=== PATIENT | female | born 1965 | race American Indian/Alaskan Native ===

== ENCOUNTER 2016-09-17 15:04 | Emergency (ER) | payer BC ==
--- NOTE | 2016-09-17 15:38 | Emergency Department Report ---
Chief Complaint: Chest Pain Stated Complaint: PHYSICIAN REFERRAL,HX OF CHEST PAIN Time Seen by Provider: 09/17/16 15:36 - HPI History of Present Illness: PT states she was seen in another ED last week and had chest pain work up and was sent home. PT states she followed up with GI today and was sent back to ED. - ROS Review of Systems: + chest pain + back pain - n/v - dysuria - Exam Physical Exam: pt looks well, non toxic no acute resp distress no cva tenderness justin MSE screening note: Focused history and physical exam performed. Due to findings the following was ordered: ekg, labs, xr ED Disposition for MSE Condition: Stable
[2016-09-17 15:42] VITALS: BP 172/100
[2016-09-17 16:24] LABS: Alanine Aminotransferase 9 units/L (7-56); Albumin 4.2 g/dL (3.9-5); Albumin/Globulin Ratio 1.1 %; Alkaline Phosphatase 88 units/L (35-129); Anion Gap 19 mmol/L; BUN/Creatinine Ratio 6.25; Blood Urea Nitrogen 5 mg/dL (7-17); Calcium 9.5 mg/dL (8.4-10.2); Carbon Dioxide 25 mmol/L (22-30); Chloride 100.6 mmol/L (98-107); Glucose 97 mg/dL (65-100); Lipase 55 units/L (13-60); Potassium 3.7 mmol/L (3.6-5.0); Sodium 141 mmol/L (137-145); Total Protein 7.9 g/dL (6.3-8.2)
[2016-09-17 16:26] LABS: Eosinophils % (Auto) 1.8 % (0.0-4.3); Hematocrit 41.4 % (30.3-42.9); Hemoglobin 13.4 gm/dl (10.1-14.3); Mean Corpuscular HGB Conc 32 % (30-34); Mean Corpuscular Volume 78 fl (79-97); Platelet Count 299 K/mm3 (140-440); Red Blood Count 5.33 M/mm3 (3.65-5.03); Red Cell Distribution Width 16.1 % (13.2-15.2); White Blood Count 8.7 K/mm3 (4.5-11.0)
[2016-09-17 16:28] LABS: INR 1.13 (0.87-1.13); Partial Thromboplastin Time 33.3 Sec. (24.2-36.6)
[2016-09-17 16:32] LABS: Mean Corpuscular Hemoglobin 25 pg (28-32)
--- NOTE | 2016-09-17 16:45 | XRay Report ---
CHEST TWO VIEWS: 09/17/16 15:04:00 CLINICAL: Chest pain. COMPARISON: 09/12/09 FINDINGS: Normal heart and pulmonary vasculature. The lungs are normally expanded and clear.The bones and soft tissues are unremarkable. IMPRESSION: Normal chest.
[2016-09-17 16:48] LABS: Bilirubin,Urine NEG (Negative); Blood,Urine NEG (Negative); Ketones,Urine TR mg/dL (Negative); Leukocyte Esterase,Urine TR (Negative); Mucus,Urine FEW /HPF; Nitrite,Urine NEG (Negative); Protein,Urine <15 mg/dL mg/dL (Negative)
--- NOTE | 2016-09-21 11:13 | ED Elopement Review ---
ED Pt Elopement review - Results review Lab results: Laboratory Tests 09/17/16 09/17/16 09/17/16 15:46 15:46 15:46 WBC 8.7 RBC 5.33 H Hgb 13.4 Hct 41.4 MCV 78 L MCH 25 L MCHC 32 RDW 16.1 H Plt Count 299 Lymph % (Auto) 35.0 Moca % (Auto) 6.5 Eos % (Auto) 1.8 Baso % (Auto) [employer] Lymph # 3.0 Moca # 0.6 Eos # 0.2 Baso # 0.0 Seg Neutrophils % 56.2 Seg Neutrophils # 4.9 PT 14.4 INR 1.13 APTT 33.3 Sodium 141 Potassium 3.7 Chloride 100.6 Carbon Dioxide 25 Anion Gap 19 BUN 5 L Creatinine 0.8 Estimated GFR > 60 BUN/Creatinine Ratio 6.25 Glucose 97 Calcium 9.5 Total Bilirubin 0.20 AST 14 ALT 9 Alkaline Phosphatase 88 Troponin T < 0.010 Total Protein 7.9 Albumin 4.2 Albumin/Globulin Ratio 1.1 Lipase 55 Urine Color Urine Turbidity Urine pH Ur Specific [place] Urine Protein Urine Glucose (UA) Urine Ketones Urine Blood Urine Nitrite Urine Bilirubin Urine Urobilinogen Ur Leukocyte Esterase Urine WBC (Auto) Urine RBC (Auto) U Epithel Cells (Auto) Calcium Oxalate Crystal Urine Mucus 09/17/16 09/17/16 16:13 20:55 WBC RBC Hgb Hct MCV MCH MCHC RDW Plt Count Lymph % (Auto) [place] % (Auto) Eos % (Auto) Baso % (Auto) Lymph # Moca # Eos # Baso # Seg Neutrophils % Seg Neutrophils # PT INR APTT Sodium Potassium Chloride Carbon Dioxide Anion Gap BUN Creatinine Estimated GFR BUN/Creatinine Ratio Glucose Calcium Total Bilirubin AST ALT Alkaline Phosphatase Troponin T < 0.010 Total Protein Albumin Albumin/Globulin Ratio Lipase Urine Color Yellow Urine Turbidity Clear Urine pH 5.0 Ur Specific [place] 1.023 Urine Protein <15 mg/dl Urine Glucose (UA) Neg Urine Ketones Tr Urine Blood Neg Urine Nitrite Neg Urine Bilirubin Neg Urine Urobilinogen 2.0 Ur Leukocyte Esterase Tr Urine WBC (Auto) 4.0 Urine RBC (Auto) 3.0 U Epithel Cells (Auto) 1.0 Calcium Oxalate Crystal 3+ Urine Mucus Few - Call Back decision Pt Call Back Decision: No action required
== END 2016-09-17 21:00 | disposition left against medical advice (07) ==
LOC: ED 15:04
DX: R07.9 Chest pain, unspecified (principal); Z53.21 Procedure and treatment not carried out due to patient leaving prior to being seen by health care provider
CPT/HCPCS: 36415; 71020; 80053; 81001; 83690; 84484; 85025; 85610; 85730; 93005; 93010